=== PATIENT | male | born 1940 | race Hispanic/Latino ===

== ENCOUNTER 2019-05-18 06:29 | Day surgery (SDC) | payer OTHER, MEDICARE ==
[2019-05-16 11:50] LABS: BASOPHILS % (AUTO) 0.8 % (0.0-5.0); EOSINOPHILS % (AUTO) 1.9 % (0.0-8.0); HEMATOCRIT 34.6 % (42-54); LYMPHOCYTES % (AUTO) 21.3 % (21.0-51.0); MEAN CORPUSCULAR HEMOGLOBIN 29.6 pg (27.0-33.0); MEAN CORPUSCULAR VOLUME 89.6 fL (79-99); MONOCYTES % (AUTO) 4.6 % (3.0-13.0); NEUTROPHILS % (AUTO) 71.4 % (40.0-77.0); PLATELET COUNT (AUTO) 299 K/uL (130-400); RED BLOOD CELL COUNT(AUTO) 3.86 MIL/uL (4.50-6.20); RED CELL DISTRIBUTION WIDTH 16.4 % (11.0-15.5); WHITE BLOOD COUNT (AUTO) 11.2 K/uL (4.8-10.8)
[2019-05-16 12:14] LABS: ALBUMIN 3.4 g/dL (3.5-5.0); BILIRUBIN,DIRECT 0.1 mg/dL (0.0-0.3); BILIRUBIN,TOTAL 0.3 mg/dL (0.2-1.0); POTASSIUM 4.9 mmol/L (3.5-5.1); TOTAL PROTEIN, SERUM 7.9 g/dL (6.0-8.3)
[2019-05-16 12:17] VITALS: BP 126/58
[2019-05-16 12:27] LABS: INR 0.93 (0.85-1.15); PROTHROMBIN TIME 9.8 SEC (9.6-11.6)
[~2019-05-18] VITALS: Ht 162.6 cm; Wt 58.0 kg
[2019-05-18] VITALS (14 sets, daily range): BP systolic 128–152; BP diastolic 60–70
[~2019-05-18 06:29] MED LIST: AMLO5TAB9 PO; ASPI-1026 PO; ATOR20TA65 PO; CHOL400C9 PO; FINA5TAB41 PO; LEVO50TA11 PO; METF-446 PO; OMEP40CA37 PO; SITA100T12 PO
--- NOTE | 2019-05-18 07:10 | NUR ---
POTENTIAL FOR INFECTION: SHAVED ENTIRE ABDOMEN BY GUCCI LEHMAN
[2019-05-18] MEDS: SODIUM CHLORIDE 0.9% 1000ML 1,000 ML IV SCH ×2 (07:22→08:26)
[2019-05-18] MEDS ORDERED: PROPOFOL 10 MG/ML 20ML VIAL IV ONE (07:27)
[2019-05-18] MEDS ORDERED: FENTANYL CITRATE PF 50 MCG/1 ML 2ML VIAL ONE ×2 (07:27→08:57)
[2019-05-18] MEDS ORDERED: LIDOCAINE PF 2% 5ML ABBOJECT ONE (07:27)
[2019-05-18] MEDS ORDERED: ROCURONIUM 10MG/1ML SYR 10 MG/ML ML ONE (07:27)
[2019-05-18] MEDS ORDERED: ZOSYN 3.375GM+NS 50ML 50 ML IV ONE (08:16)
[2019-05-18] MEDS ORDERED: EPHEDRINE SULFATE 50 MG/ML AMPULE ONE (08:40)
[2019-05-18] MEDS ORDERED: NEOSTIGMINE 5MG/5ML SYR IV ONE (08:40)
[2019-05-18] MEDS ORDERED: GLYCOPYRROLATE 1 MG/5 ML SYRINGE ONE (08:40)
[2019-05-18] MEDS ORDERED: HEPARIN SODIUM 1000UNIT/ML 10ML VIAL ONE (08:48)
[2019-05-18] MEDS ORDERED: INSULIN HUMULIN R 100 UNIT/ML 3ML ONE (10:59)
--- NOTE | 2019-05-18 12:10 | NUR ---
DC DC INSTRUCTIONS GIVEN TO PTS SPOUSE WITH RX, INSTRUCTED ON JOSE L DRAIN CARE AND HOW TO EMPTY IT. INSTRUCTED ON NEW MED REGIMEN AND TO F/U WITH DR. MATTSON. TO CONTINUE HOME MEDS. PT/ SPOUSE VERBALIZED UNDERSTANDING. PIV REMOVED, PT WAITING FOR RIDE TO GO HOME.
--- NOTE | 2019-05-18 12:10 | NUR ---
BS BS 259, [employer] NOTIFIED OF PATIENTS BS , STATED TO INFORM PATIENT TO CONTINUE HOME MEDICATIONS FOR DIABETES
--- NOTE | 2019-05-18 12:30 | NUR ---
dc pt dc home via [place], accompanied by spouse, no distress noted. pt denied any pain or discomforts.
== END 2019-05-18 12:30 | disposition home or self-care (01) ==
LOC: DAH 06:29
PROVIDERS: ATTEND Surgery
DX: K80.10 Calculus of gallbladder with chronic cholecystitis without obstruction (principal); E11.9 Type 2 diabetes mellitus without complications; I10 Essential (primary) hypertension; I69.359 Hemiplegia and hemiparesis following cerebral infarction affecting unspecified side; E78.5 Hyperlipidemia, unspecified; Z90.49 Acquired absence of other specified parts of digestive tract; Z98.890 Other specified postprocedural states; Z79.82 Long term (current) use of aspirin
CPT/HCPCS: 36415; 47562; 80048; 80076; 82948 ×3; 85025; 85610; 88304; 93005; A4215; A4221; A4222; A4223 ×2; A4450; A4600; A4663; C1769 ×4; J1644; J1815; J2001; J2543; J2704; J2710; J3010 ×2; J3490 ×2; J7030 ×2; J7120

== ENCOUNTER → 2019-05-26 | Outpatient (CLI) | payer OTHER, MEDICARE | END | disposition home or self-care (01) | LOC: RAH 13:05 | PROVIDERS: ATTEND Surgery | DX: K91.89 Other postprocedural complications and disorders of digestive system (principal); Z90.49 Acquired absence of other specified parts of digestive tract | CPT/HCPCS: 78226; A9537 ==